=== PATIENT | female | born 1955 | race Caucasian/White ===

== ENCOUNTER 2022-02-22 23:40 | Emergency (ER) | payer OTHER ==
[~2022-02-22] VITALS: Ht 154.9 cm; Wt 59.0 kg
[2022-02-22 23:45] VITALS: BP 162/75
--- NOTE | 2022-02-23 | NUR ---
pt to bed 09
[2022-02-23] MEDS ORDERED: PHENYLEPHRINE 1% 15 ML BTL NS ONE ×2 (00:10→00:14)
--- NOTE | 2022-02-23 00:11 | NUR ---
66/F BIB SON C/C EPISTAXIS XYESTERDAY. PER SON THE BLEEDING HAS BEEN INTERMITENT AND GOES ON FOR ABOUT 30 MIN THEN STOPS. PATIENT HAS UNCONTROLLED BLEEDING WHEN EPISODES BEGIN. PATIENT PLACED IN BED WITH A RHINOPINCH. PATIENT IS AAOX4 AND AMBULATORY. PLACED ON GIS DEVELOPER. DENIES PAIN OR DISCOMFORT. DENIES PMHX, RX NKA
--- NOTE | 2022-02-23 00:11 | NUR ---
CATHERINE PEREZ AT BEDSIDE
--- NOTE | 2022-02-23 00:18 | NUR ---
LAB AT BEDSIDE
--- NOTE | 2022-02-23 00:18 | NUR ---
CATHERINE PEREZ AT BEDSIDE
--- NOTE | 2022-02-23 00:25 | NUR ---
PATIENT RQ WATER
[2022-02-23 00:27] LABS: BASOPHILS % (AUTO) 0.5 % (0.0-2.0); EOSINOPHILS # (AUTO) 0.1 K/uL (0-0.4); EOSINOPHILS % (AUTO) 1.4 % (0.0-4.0); HEMATOCRIT 36.6 % (36-48); HEMOGLOBIN 12.4 g/dL (12.0-16.0); LYMPHOCYTES # (AUTO) 1.2 K/uL (2.5-16.5); LYMPHOCYTES % (AUTO) 24.6 % (20.5-51.1); MEAN CORPUSCULAR HEMOGLOBIN 30 pg (27-31); MEAN CORPUSCULAR HGB CONC 34 g/dL (33-37); MEAN CORPUSCULAR VOLUME 89.6 fL (80-94); MONOCYTES # (AUTO) 0.5 K/uL (0.8-1.0); MONOCYTES % (AUTO) 10.7 % (1.7-9.3); NEUTROPHILS # (AUTO) 2.9 K/uL (1.8-7.7); NEUTROPHILS % (AUTO) 62.8 % (42.2-75.2); PLATELET COUNT (AUTO) 193 K/uL (140-450); RED BLOOD CELL COUNT(AUTO) 4.08 MIL/uL (4.20-5.40); RED CELL DISTRIBUTION WIDTH 12.8 % (11.6-13.7); WHITE BLOOD COUNT (AUTO) 4.7 K/uL (4.8-10.8)
--- NOTE | 2022-02-23 00:57 | NUR ---
PATIENT SPITTING OUT BLOOD CLOTS. CATHERINE PEREZ MADE AWARE.
--- NOTE | 2022-02-23 01:00 | NUR ---
CATHERINE PEREZ AT BEDSIDE
[2022-02-23 02:36] VITALS: BP 127/65
--- NOTE | 2022-02-23 02:36 | NUR ---
Patient discharged with v/s stable. Written and verbal after care instructions given and explained. Patient verbalized understanding. Ambulatory with steady gait. All questions addressed prior to discharge. Advised to follow up with PMD.
== END 2022-02-23 02:36 | disposition home or self-care (01) ==
LOC: MED 23:40
DX: R04.0 Epistaxis (principal)
CPT/HCPCS: 30901; 36415; 85025; 99284

== ENCOUNTER 2022-02-25 12:45 | Emergency (ER) | payer OTHER ==
[~2022-02-25] VITALS: Ht 154.9 cm; Wt 60.3 kg
[2022-02-25 14:17] VITALS: BP 139/78
--- NOTE | 2022-02-25 14:23 | NUR ---
PT AMB TO BED 12,
[2022-02-25] MEDS ORDERED: IBUP-2213 PO (14:52)
--- NOTE | 2022-02-25 15:08 | NUR ---
Pt presents to Ed with c/o nosebleed 3 days ago. Pt's son reports pt was directed by PCP to leave the rhino rocket in place and to follow up in ED for removal. Pt reports 6/10 intermittent head pain, no medication was given. Dr. Gifford removed rhino rocket upon assessment and no bleeding was noted. Pt laying in bed comfortably, bed set at lowest position, side rail up x1.
--- NOTE | 2022-02-25 15:15 | NUR ---
Patient discharged with v/s stable. Written and verbal after care instructions nosebleed given and explained. Patient alert, oriented and verbalized understanding of instructions. Ambulatory with steady gait. All questions addressed prior to discharge. ID band removed. Patient advised to follow up with PMD. Rx of Ibuprofen given. Patient educated on indication of medication including possible reaction and side effects. Opportunity to ask questions provided and answered.
== END 2022-02-25 15:20 | disposition home or self-care (01) ==
LOC: MED 12:45
DX: R04.0 Epistaxis (principal); R51.9 Headache, unspecified; Z79.899 Other long term (current) drug therapy
CPT/HCPCS: 99282

== ENCOUNTER 2022-08-02 22:19 | Emergency (ER) | payer OTHER ==
[~2022-08-02] VITALS: Ht 160 cm; Wt 54.4 kg
[~2022-08-02 22:19] MED LIST: IBUP-2213 PO
[2022-08-02 22:30] VITALS: BP 122/74
--- NOTE | 2022-08-02 22:33 | NUR ---
TO LOBBY A/W BED AMBULATORY
--- NOTE | 2022-08-02 22:57 | NUR ---
PT TAKEN TO RADIOLOGY
--- NOTE | 2022-08-03 00:19 | NUR ---
Dr. Thomas explained results and treatment plans.
[2022-08-03] MEDS ORDERED: KETOROLAC 60 MG/2 ML VIAL IM ONE (00:20)
[2022-08-03] MEDS ORDERED: NAPR-1717 PO (01:04)
--- NOTE | 2022-08-03 01:08 | NUR ---
Patient discharged with v/s stable. Written and verbal after care instructions given and explained by Dr. Thomas. Patient alert, oriented and verbalized understanding of instructions. Ambulatory with steady gait. All questions addressed prior to discharge. ID band removed. Patient advised to follow up with PMD. Rx of Naproxen given. Patient educated on indication of medication including possible reaction and side effects. Opportunity to ask questions provided and answered.
== END 2022-08-03 01:08 | disposition home or self-care (01) ==
LOC: MED 22:19
DX: S43.402A Unspecified sprain of left shoulder joint, initial encounter (principal); Z79.1 Long term (current) use of non-steroidal anti-inflammatories (NSAID); X58.XXXA Exposure to other specified factors, initial encounter; Y92.89 Other specified places as the place of occurrence of the external cause; Y93.89 Activity, other specified; Y99.8 Other external cause status
CPT/HCPCS: 73030; 96372; 99283; J1885

== ENCOUNTER 2023-11-13 17:46 | Emergency (ER) | payer OTHER ==
[~2023-11-13] VITALS: Ht 160 cm; Wt 54.4 kg
[~2023-11-13 17:46] MED LIST changes: +NAPR-1717 PO
[2023-11-13 17:59] VITALS: BP 133/69; PULSE 73; RESP 16; TEMP 98.2; O2SAT 95
[2023-11-13] MEDS: PHENYLEPHRINE 1% 15 ML BTL NS ONE (18:20)
[2023-11-13 18:39] LABS: BASOPHILS % (AUTO) 0.6 % (0.0-2.0); EOSINOPHILS # (AUTO) 0.2 K/uL (0-0.4); EOSINOPHILS % (AUTO) 2.7 % (0.0-4.0); HEMATOCRIT 39.5 % (36-48); HEMOGLOBIN 13.3 g/dL (12.0-16.0); LYMPHOCYTES # (AUTO) 1.4 K/uL (2.5-16.5); LYMPHOCYTES % (AUTO) 24.3 % (20.5-51.1); MEAN CORPUSCULAR HEMOGLOBIN 30 pg (27-31); MEAN CORPUSCULAR HGB CONC 34 g/dL (33-37); MEAN CORPUSCULAR VOLUME 87.7 fL (80-94); MONOCYTES # (AUTO) 0.6 K/uL (0.8-1.0); MONOCYTES % (AUTO) 10.8 % (1.7-9.3); NEUTROPHILS # (AUTO) 3.4 K/uL (1.8-7.7); NEUTROPHILS % (AUTO) 61.6 % (42.2-75.2); PLATELET COUNT (AUTO) 259 K/uL (140-450); RED BLOOD CELL COUNT(AUTO) 4.51 MIL/uL (4.20-5.40); RED CELL DISTRIBUTION WIDTH 12.9 % (11.6-13.7); WHITE BLOOD COUNT (AUTO) 5.6 K/uL (4.8-10.8)
[2023-11-13] MEDS: TRANEXAMIC ACID 1,000 MG/10 ML VIAL MC ONE (18:39)
[2023-11-13 19:25] VITALS: O2SAT 99
[2023-11-13 20:07] VITALS: BP 151/65; PULSE 59; RESP 15; TEMP 97.8; O2SAT 98
== END 2023-11-13 20:07 | disposition home or self-care (01) ==
LOC: MED 17:46
DX: R04.0 Epistaxis (principal); E11.9 Type 2 diabetes mellitus without complications; Z79.899 Other long term (current) drug therapy
CPT/HCPCS: 36415; 85025; 99283; J3490

== ENCOUNTER 2023-12-31 14:30 | Emergency (ER) | payer OTHER ==
[~2023-12-31] VITALS: Ht 154.9 cm; Wt 56.7 kg
[2023-12-31 14:33] VITALS: BP 167/88; PULSE 78; RESP 18; TEMP 98.1; O2SAT 98
--- NOTE | 2023-12-31 14:43 | NUR ---
PT AMBULATED TO BED 9
[2023-12-31 15:00] VITALS: O2SAT 98
--- NOTE | 2023-12-31 15:00 | NUR ---
PATIENT PRESENTS TO ED WITH NOSE BLEED. PT STATES THAT THEY WERE CLEANING AND THERE NOSE STARTED BLEEDING . DENIES N/V/D; SKIN IS PINK/WARM/DRY; AAOX4 WITH EVEN AND STEADY GAIT; LUNGS CLEAR BL; HR EVEN AND REGULAR; PT DENIES ANY FEVER, CP, SOB, OR COUGH AT THIS TIME; PATIENT STATES PAIN OF 0/10 AT THIS TIME; VSS; PATIENT POSITIONED FOR COMFORT; HOB ELEVATED; BEDRAILS UP X2; BED DOWN. ER MD MADE AWARE OF PT STATUS. CALL LIGHT WITHIN REACH NKA
[2023-12-31] MEDS: PHENYLEPHRINE 1% 15 ML BTL NS STA (15:44)
[2023-12-31] MEDS: TRANEXAMIC ACID 1,000 MG/10 ML VIAL MC STA (15:45)
[2023-12-31] MEDS ORDERED: IBUP-2213 PO (17:21)
== END 2023-12-31 17:25 | disposition home or self-care (01) ==
LOC: MED 14:30
DX: R04.0 Epistaxis (principal); E11.9 Type 2 diabetes mellitus without complications; Z79.899 Other long term (current) drug therapy
CPT/HCPCS: 30901; 99284; J3490

== ENCOUNTER 2024-01-02 14:54 | Emergency (ER) | payer OTHER ==
[~2024-01-02] VITALS: Ht 157.5 cm; Wt 72.6 kg
[2024-01-02 15:06] VITALS: BP 121/69; PULSE 74; RESP 18; TEMP 97.3; O2SAT 95
--- NOTE | 2024-01-02 15:08 | NUR ---
TO ER BED 3
--- NOTE | 2024-01-02 15:22 | NUR ---
68 Y/O FEMALE PT. PRESENT TO THE ED C/O HEADACHES. PT. HAD A RAPID RHINO PLACE AND SHE WANTS TO BE REMOVE. NO SIGSN OF BLEEDING NOTED AT PRESENT TIME. PLAN OF CARE ONGOING.
--- NOTE | 2024-01-02 16:12 | NUR ---
RAPID RHINO REMOVED BY DR. OSEI AND PRESSURE APPLIED. SMITHA SYNEPHRINE AT BED SIDE. FOR DR. OSEI TO APPLIED.
[2024-01-02] MEDS: PHENYLEPHRINE 1% 15 ML BTL NS ONE (16:24)
[2024-01-02 16:45] VITALS: BP 121/69; PULSE 74; RESP 18; TEMP 97.3; O2SAT 95
--- NOTE | 2024-01-02 16:58 | NUR ---
NOSE BLEED STOPPED. PT. D/C HOME NO SIGNS OF ACUTE DISTRESS NOTED.
== END 2024-01-02 16:58 | disposition home or self-care (01) ==
LOC: MED 14:54
DX: R04.0 Epistaxis (principal); R51.9 Headache, unspecified; R03.0 Elevated blood-pressure reading, without diagnosis of hypertension; E11.9 Type 2 diabetes mellitus without complications; Z79.899 Other long term (current) drug therapy
CPT/HCPCS: 99282